=== PATIENT | female | born 1985 | race African-American/Black ===

== ENCOUNTER 2020-12-06 08:01 | Outpatient (CLI) | payer OTHER | END 2020-12-06 23:59 | disposition home or self-care (01) | LOC: CFH 08:01 | PROVIDERS: ATTEND Orthopaedic Surgery | DX: M41.84 Other forms of scoliosis, thoracic region (principal); I25.9 Chronic ischemic heart disease, unspecified | CPT/HCPCS: 71046; 93356 ==

== ENCOUNTER → 2020-12-06 | Outpatient (CLI) | payer OTHER | END | disposition home or self-care (01) | LOC: CVU 08:04 | PROVIDERS: ATTEND Orthopaedic Surgery | DX: I25.9 Chronic ischemic heart disease, unspecified (principal) | CPT/HCPCS: 93306; 93356 ==